=== PATIENT | female | born 2000 | race Caucasian/White ===

== ENCOUNTER 2023-10-20 01:09 | Emergency (ER) | payer OTHER ==
[2023-10-20] MEDS ORDERED: diphenhydrAMINE 50 MG/ML VIAL ONE (02:08)
[2023-10-20] MEDS ORDERED: Metoclopramide HCl 10 MG (2 mL) VIAL ONE (02:08)
[2023-10-20] MEDS ORDERED: Dexamethasone 10 MG/ML VIAL ONE (02:08)
[2023-10-20] MEDS ORDERED: Ketorolac Tromethamine 30 MG (1 mL) VIAL ONE (02:09)
[2023-10-20 02:34] LABS: #Basophils 0.03 10x3/uL (0.0-0.2); #Eosinphils 0.02 10x3/uL (0.0-0.5); #Monocytes 0.37 10x3/uL (0.0-1.1); #Neutrophils 4.27 10x3/uL (1.5-8.4); %Basophils 0.4 % (0.0-2.0); %Eosinophils 0.3 % (0.0-6.0); %Lymphocytes 32.1 % (18.0-47.0); %Monocytes 5.3 % (0.0-10.0); %Neutrophils 61.8 % (40.0-75.0); ALT (SGPT) 12 U/L (8-55); AST (SGOT) 20 U/L (5-34); Albumin 4.5 g/dL (3.5-5.0); Alkaline Phosphatase 60 U/L (40-110); Anion Gap 15 mmol/L (10-20); BUN (Urea Nitrogen) 11 mg/dL (7.0-18.7); Bilirubin, Total 0.4 mg/dL (0.2-1.2); Calc. Creatinine Clearance 0 mL/min (70-130); Calcium 10.2 mg/dL (7.8-10.44); Carbon Dioxide 24 mmol/L (22-29); Chloride 101 mmol/L (98-107); Estimated GFR 106; Globulin 4.7 g/dL (2.4-3.5); Glucose 104 mg/dL (70-105); Hematocrit 39.7 % (34.9-44.5); Hemoglobin 14.1 g/dL (12.0-15.5); Mean Corpuscular HGB CONC 35.5 g/dL (32.0-36.0); Mean Corpuscular Hemoglobin 29.9 pg (27.0-33.0); Mean Corpuscular Volume 84.1 fL (81.6-98.3); Mean Platelet Volume 9.8 fL (7.4-10.4); Platelet Count 435 10x3/uL (150-450); Potassium 3.7 mmol/L (3.5-5.1); Protein, Total 9.2 g/dL (6.0-8.3); Red Blood Cell (RBC) Count 4.72 10x6/uL (3.90-5.03); Sodium 136 mmol/L (136-145); White Blood Cell (WBC) Count 6.9 10x3/uL (3.5-10.5)
[2023-10-20 02:35] LABS: BHCG - Serum Negative (NEGATIVE); Pregs Control Background? CLEAR/WHITE (CLR/WHITE); Pregs Control Bar Appear? YES (CONTROL BAR)
== END 2023-10-20 03:28 | disposition home or self-care (01) ==
LOC: CSHERS 01:09
DX: R51.9 Headache, unspecified (principal); Z55.6 Problems related to health literacy; E03.9 Hypothyroidism, unspecified; Z79.890 Hormone replacement therapy
CPT/HCPCS: 70450; 80053; 84703; 85025; 96374; 96375; J1100; J1200; J1885; J2765